=== PATIENT | female | born 1970 | race Caucasian/White ===

== ENCOUNTER 2017-04-24 21:39 | Emergency (ER) | payer SELFPAY ==
[~2017-04-24] VITALS: Ht 165.1 cm; Wt 82.0 kg
[~2017-04-24 21:39] MED LIST: ATEN50TA
[2017-04-24 21:57] VITALS: Ht 165.1 cm; Wt 82.0 kg
== END 2017-04-25 01:28 | disposition left against medical advice (07) ==
LOC: FTE 21:39
DX: Z53.21 Procedure and treatment not carried out due to patient leaving prior to being seen by health care provider (principal)

== ENCOUNTER 2017-04-27 13:10 | Inpatient (IN) | payer OTHER ==
[~2017-04-27] VITALS: Ht 157.5 cm; Wt 80.0 kg
--- NOTE | 2017-04-27 14:35 | ERA ---
ER Documentation Chief Complaint Date/Time DATE: 04/27/17 TIME: 14:34 Chief Complaint FEELS DIZZY, VAG BLEEDING X 1 MOS HPI The patient is a 46-year-old female, presenting to the ER because of dizziness, associated with vaginal bleeding for 1 month, worse for the last 3 days. She denies syncope, near syncope, neck pain, chest pain, abdominal pain. She does not smoke nor drink Past medical history: Hypertension Past Surgical history: Neck ROS All systems reviewed and are negative except as per history of present illness. Medications Home Meds Reported Medications Atenolol* (Atenolol*) 50 Mg Tablet, 50 MG PO DAILY, #30 TAB 04/27/17 Discontinued Reported Medications Atenolol* (Atenolol*) 50 Mg Tablet 11/27/10 Allergies Allergies: Coded Allergies: No Known Drug Allergies (Verified Allergy, Mild, 04/27/17) PMhx/Soc History of Surgery: Yes (neck sx) Anesthesia Reaction: No Hx Neurological Disorder: No Hx Respiratory Disorders: No Hx Cardiac Disorders: Yes (HTN) Hx Psychiatric Problems: No Hx Miscellaneous Medical Probl: No Hx Alcohol Use: No Hx Substance Use: No Hx Tobacco Use: No Smoking Status: Never smoker Physical Exam Vitals Vital Signs Date Time Temp Pulse Resp B/P Pulse Ox O2 Delivery O2 Flow Rate FiO2 04/27/17 15:43 77 145/77 04/27/17 14:22 98.0 85 18 134/49 100 Room Air 04/27/17 13:12 98.1 99 18 144/67 99 Physical Exam Const: No acute distress.Pale Head: Atraumatic. Eyes: icteric Conjunctiva. ENT: Normal External Ears, Nose and Mouth. Neck: Full range of motion. No meningismus. Resp: Clear to auscultation bilaterally. Cardio: Regular rate and rhythm. Abd: Soft, non distended, normal bowel sounds, non tender. Skin: No petechiae or rashes. Back: No midline or flank tenderness. Ext: No cyanosis, or edema. Neur: Awake and alert. No focal deficit Psych: Normal Mood and Affect. Result Diagram: 04/27/17 1450 04/27/17 1450 Results 24 hrs Laboratory Tests Test 04/27/17 14:30 04/27/17 14:50 Iron Level 17ug/dl Total Iron Binding Capacity 382ug/dl Percent Iron Saturation 4% SAT White Blood Count 6.310^3/ul Red Blood Count 2.4710^6/ul Hemoglobin 6.5g/dl Hematocrit 21.4% Mean Corpuscular Volume 86.6fl Mean Corpuscular Hemoglobin 26.3pg Mean Corpuscular Hemoglobin Concent 30.4g/dl Red Cell Distribution Width 19.1% Platelet Count 92365^3/UL Mean Platelet Volume 11.3fl Neutrophils % 69.3% Segmented Neutrophils % (Manual) 70% Band Neutrophils % (Manual) 1% Lymphocytes % 21.6% Lymphocytes % (Manual) 24% Monocytes % 6.0% Monocytes % (Manual) 4% Eosinophils % 2.1% Eosinophils % (Manual) 1% Basophils % 0.5% Nucleated Red Blood Cells % 1% Neutrophils # (Manual) 410^3/ul Band Neutrophils # 0.010^3/ul Absolute Lymphocytes (Manual) 1.510^3/ul Lymphocytes # 1.410^3/ul Monocytes # 0.410^3/ul Absolute Monocytes (Manual) 0.210^3/ul Eosinophils # 0.110^3/ul Basophils # 0.010^3/ul Nucleated Red Blood Cells # 0.110^3/ul Pathologist Review (Hematology) YES Thrombocytosis 2% Platelet Morphology Comment @See below Polychromasia 1+ Hypochromasia 1+ Anisocytosis 1+ Microcytosis 1+ Sodium Level 141mmol/L Potassium Level 4.2mmol/L Chloride Level 107mmol/L Carbon Dioxide Level 25mmol/L Anion Gap 13 Blood Urea Nitrogen 6mg/dl Creatinine 0.74mg/dl Glucose Level 97mg/dl Calcium Level 9.2mg/dl Procedures/[place] [address] Radiology Main Line: [phone] DIAGNOSTIC IMAGING REPORT Patient: TONYA VENTURA : 1970 Age: 46 Sex: F MR #: [id number] DOS: 04/27/17 [facility]3 Ordering MD: ARYA SKINNER MD Location: E/R Room/Bed: PROCEDURE: OBSTETRICAL ULTRASOUND WITH ENDOVAGINAL IMAGES CLINICAL INDICATION: Vaginal Bleed () TECHNIQUE: Multiple sonographic images of the pelvis were obtained utilizing a transabdominal and endovaginal technique. The images were reviewed on a PACS workstation. COMPARISON: None. FINDINGS: The uterus is retroverted and measures 8.4 x 5.6 x 5.5 cm. The endometrium measures 14 mm in thickness and is mildly heterogeneous. There is no evidence of an intrauterine . Several sub-centimeter Nabothian cysts are identified. There is a 1.5 cm anterior intramural uterine fibroid at the level of the upper body. The right ovary measures 2.9 x 1.2 x 1.6 cm. The left ovary measures 5.8 x 3.1 x 4.0 cm. There is normal vascular flow in both ovaries. There is a multi septated cystic lesion in the left ovary measuring up to 4.6 x 2.1 x 3.4 cm. The septations measure up to 3 mm in thickness. Possible vascular flow is noted in the septations. There is trace pelvic free fluid. IMPRESSION: Heterogeneity and thickening of the endometrium to 14 mm without evidence of an intrauterine . Findings may be due to an early intrauterine although an ectopic cannot be entirely excluded. Short- term follow-up ultrasound and serial Beta HCG measurements are recommended for further evaluation. 4.6 cm the septated cystic lesion in the left ovary with possible vascular flow noted in the septations. This lesion is nonspecific and may be a hemorrhagic/ corpus luteal cyst although the presence of possible vascular flow favors an alternative etiology. Follow-up ultrasound in 6-12 weeks is recommended for further evaluation. 1.5 cm uterine fibroid. RPTAT: EE Physician Dean Date Time Electronically viewed and signed by Physician Dean on 04/27/2017 15:42 RA/ CC: ARYA SKINNER MD MEDICAL MAKING DECISION: The patient is a 46-year-old female, presenting with acute symptomatic anemia due to acute vaginal bleeding from fibroid. I have ordered 2 units of packed red blood cell transfusion The differential diagnoses considered include but are not limited to fibroid, uti, menometrorrhagia, non- related bleeding. Consultation: I discussed the present with the on-call oncologist Dr. García who accepted the consult at 4 PM Departure Diagnosis: Primary Impression: Symptomatic anemia Additional Impression: Fibroid Condition: Stable Comments I discussed the findings with the patient. I discussed the patient with the on- call hospitalist Dr Farris at 4:15 PM who was made aware of the lab, the treatment, the patient condition. The patient is admitted to ARYA OSMAN MD Apr 27, 2017 14:35
[2017-04-27 14:59] LABS: ABNORMAL IP MESSAGE 1; BASOPHILS % 0.5 % (0.0-2.0); EOSINOPHILS # 0.1 10^3/ul (0.0-0.5); EOSINOPHILS % 2.1 % (0.0-7.0); HEMATOCRIT 21.4 % (37.0-47.0); LYMPHOCYTES # 1.4 10^3/ul (0.8-2.9); LYMPHOCYTES % 21.6 % (15.0-51.0); MEAN CORPUSCULAR HEMOGLOBIN 26.3 pg (29.0-33.0); MEAN CORPUSCULAR HGB CONC 30.4 g/dl (32.0-37.0); MEAN CORPUSCULAR VOLUME 86.6 fl (82.0-101.0); MEAN PLATELET VOLUME 11.3 fl (7.4-10.4); MONOCYTE # 0.4 10^3/ul (0.3-0.9); NEUTROPHILS % 69.3 % (39.0-77.0); NUCLEATED RED BLOOD CELLS # 0.1 10^3/ul (0.0-0.0); NUCLEATED RED BLOOD CELLS% 0.9 /100WBC (0.0-0.0); PLATELET COUNT 295 10^3/UL (140-415); RED BLOOD COUNT 2.47 10^6/ul (4.20-5.40); RED CELL DISTRIBUTION WIDTH 19.1 % (11.5-14.5); WHITE BLOOD COUNT 6.3 10^3/ul (4.8-10.8)
[2017-04-27 15:00] LABS: POSITIVE DIFF @See below
[2017-04-27 15:02] LABS: HEMOGLOBIN 6.5 g/dl (12.0-16.0)
[2017-04-27 15:03] LABS: PATH REVIEW? YES
[2017-04-27 15:18] LABS: CALCIUM 9.2 mg/dl (8.4-10.2); CREATININE 0.74 mg/dl (0.44-1.00); POTASSIUM 4.2 mmol/L (3.5-5.1)
--- NOTE | 2017-04-27 15:42 | RADRPT ---
PROCEDURE: OBSTETRICAL ULTRASOUND WITH ENDOVAGINAL IMAGES CLINICAL INDICATION: Vaginal Bleed () TECHNIQUE: Multiple sonographic images of the pelvis were obtained utilizing a transabdominal and endovaginal technique. The images were reviewed on a PACS workstation. COMPARISON: None. FINDINGS: The uterus is retroverted and measures 8.4 x 5.6 x 5.5 cm. The endometrium measures 14 mm in thickn ess and is mildly heterogeneous. There is no evidence of an intrauterine . Several sub-ce ntimeter Nabothian cysts are identified. There is a 1.5 cm anterior intramural uterine fibroid at the level of the upper body. The right ovary measures 2.9 x 1.2 x 1.6 cm. The left ovary measures 5.8 x 3.1 x 4.0 cm. There is no rmal vascular flow in both ovaries. There is a multi septated cystic lesion in the left ovary measuring up to 4.6 x 2.1 x 3.4 cm. The s eptations measure up to 3 mm in thickness. Possible vascular flow is noted in the septations. There is trace pelvic free fluid. IMPRESSION: Heterogeneity and thickening of the endometrium to 14 mm without evidence of an intrauterine pregnan cy. Findings may be due to an early intrauterine although an ectopic cannot b e entirely excluded. Short-term follow-up ultrasound and serial Beta HCG measurements are recommend ed for further evaluation. 4.6 cm the septated cystic lesion in the left ovary with possible vascular flow noted in the septati ons. This lesion is nonspecific and may be a hemorrhagic/corpus luteal cyst although the presence o f possible vascular flow favors an alternative etiology. Follow-up ultrasound in 6-12 weeks is recom mended for further evaluation. 1.5 cm uterine fibroid. RPTAT: EE Physician Dean Date Time Electronically viewed and signed by Physician Dean on 04/27/2017 15:42 /
[2017-04-27] MEDS ORDERED: ATEN50TA PO (15:55)
[2017-04-27 16:27] LABS: ANISOCYTOSIS 1+ (0-0); EOSINOPHILS % (M) 1 % (0-7); ERYTHROBLAST% (NRBC) (M) 1 % (0-0); GIANT THROMBO% (M) 2 % (0-0); HYPOCHROMASIA 1+ (0-0); MICROCYTOSIS 1+ (0-0); MONOCYTES % (M) 4 % (0-11); POLYCHROMASIA 1+ (0-0)
[2017-04-27 17:19] LABS: IRON 17 ug/dl (35-150)
[2017-04-27 17:28] LABS: TOTAL IRON BINDING CAPACITY 382 ug/dl (241-421)
--- NOTE | 2017-04-27 18:32 | HP ---
Date/Time of Note Date/Time of Note DATE: 04/27/17 TIME: 18:25 Assessment/Plan VTE Prophylaxis VTE Prophylaxis Intervention: SCD's Assessment/Plan Assessment/Plan 46 yo F here with symptomatic anemia from menorrhagia. PLAN blood transfusion already ordered by ER labor relations analyst cs cont home BB SCDs only HPI/ROS Admit Date/Time Admit Date/Time Apr 27, 2017 at 16:14 Hx of Present Illness CC chest pain, heavy vaginal bleeding HPI 46 yo F presents with chest pain in setting of very heavy vaginal bleeding x 1 month. Pt reports previously had heavy vaginal bleeding ~ 18 mos ago, had lots of tests run by PCP was on OCPs for 3 months and periods went back to normal (3- 4 days q month). However for the past month pt has had very heavy vaginal bleeding, states she's been going though a box of menstrual pads daily. Wednesday started feeling lightheaded and very fatigued which is what prompted her to come to the ER. Hgb here 6.9 PMH/Family/Social Past Medical History as per [facility] Social History lives in the community Smoking Status: Never smoker Exam/Review of Systems Vital Signs Vitals Vital Signs Date Time Temp Pulse Resp B/P Pulse Ox O2 Delivery O2 Flow Rate FiO2 04/27/17 15:43 77 145/77 04/27/17 14:22 98.0 18 100 Room Air Exam Exam EOMI MMM nad no mrg lungs clear abd soft no rashes moves exts freely hgb 6.5, MCV nl, iron level low Labs Result Diagram: 04/27/17 1450 04/27/17 1450 Medications Medications Current Medications Atenolol (Tenormin) 50 mg DAILY PO ; Start 04/28/17 at 09:00 Procedures Procedures pelvic US IMPRESSION: Heterogeneity and thickening of the endometrium to 14 mm without evidence of an intrauterine . Findings may be due to an early intrauterine although an ectopic cannot be entirely excluded. Short- term follow-up ultrasound and serial Beta HCG measurements are recommended for further evaluation. 4.6 cm the septated cystic lesion in the left ovary with possible vascular flow noted in the septations. This lesion is nonspecific and may be a hemorrhagic/ corpus luteal cyst although the presence of possible vascular flow favors an alternative etiology. Follow-up ultrasound in 6-12 weeks is recommended for further evaluation. 1.5 cm uterine fibroid. MILADYS LOUISE MD Apr 27, 2017 18:32
[2017-04-27] MEDS ORDERED: METOCLOPRAMIDE 10 MG INJ IV PRN (19:00)
[2017-04-27] MEDS ORDERED: ONDANSETRON 4 MG INJ IV PRN (19:00)
[2017-04-27] MEDS ORDERED: MAGNESIUM HYDROXIDE 30ML CUP PO PRN (19:00)
[2017-04-27] MEDS ORDERED: DOCUSATE SODIUM 100 MG CAP PO PRN (19:00)
[2017-04-27] MEDS ORDERED: NA PHOSPHATE/BIPHOS 133 ML ENEMA PR PRN (19:00)
[2017-04-27] MEDS ORDERED: ONDANSETRON 4 MG TAB PO PRN (19:00)
[2017-04-27] MEDS ORDERED: ACETAMINOPHEN 325 MG TAB PO PRN (19:00)
[2017-04-27] MEDS ORDERED: NACL 0.9% 3 ML SYG IV SCH (19:00)
[2017-04-27] MEDS ORDERED: BISACODYL 10 MG SUPP PR PRN (19:00)
[2017-04-27] MEDS ORDERED: BISACODYL (EC) 5 MG TAB PO PRN (19:00)
[2017-04-27 19:15] VITALS: TEMP 97.7
[2017-04-27 19:36] VITALS: Ht 157.5 cm; Wt 80.0 kg
[2017-04-27 19:47] VITALS: BP 138/62; PULSE 77; RESP 20
[2017-04-27 20:07] VITALS: BP 138/62
[2017-04-27 22:12] VITALS: BP 135/63; PULSE 93; RESP 18
[2017-04-27] MEDS: LORATADINE 10 MG TAB PO SCH (23:44)
[2017-04-28 02:02] VITALS: BP 132/59
[2017-04-28 05:27] LABS: BASOPHILS % 0.6 % (0.0-2.0); EOSINOPHILS # 0.1 10^3/ul (0.0-0.5); EOSINOPHILS % 2.3 % (0.0-7.0); HEMATOCRIT 22.3 % (37.0-47.0); HEMOGLOBIN 7.1 g/dl (12.0-16.0); LYMPHOCYTES # 1.8 10^3/ul (0.8-2.9); LYMPHOCYTES % 29.5 % (15.0-51.0); MEAN CORPUSCULAR HEMOGLOBIN 27.7 pg (29.0-33.0); MEAN CORPUSCULAR HGB CONC 31.8 g/dl (32.0-37.0); MEAN CORPUSCULAR VOLUME 87.1 fl (82.0-101.0); MEAN PLATELET VOLUME 11.2 fl (7.4-10.4); MONOCYTE # 0.6 10^3/ul (0.3-0.9); MONOCYTES % 9.4 % (0.0-11.0); NEUTROPHILS % 57.6 % (39.0-77.0); NUCLEATED RED BLOOD CELLS # 0.1 10^3/ul (0.0-0.0); NUCLEATED RED BLOOD CELLS% 0.8 /100WBC (0.0-0.0); PLATELET COUNT 238 10^3/UL (140-415); RED BLOOD COUNT 2.56 10^6/ul (4.20-5.40); RED CELL DISTRIBUTION WIDTH 17.2 % (11.5-14.5); WHITE BLOOD COUNT 6.2 10^3/ul (4.8-10.8)
[2017-04-28 07:04] LABS: T3 UPTAKE 29.1 % (23.5-40.5)
[2017-04-28 08:00] VITALS: BP 123/66; RESP 19
[2017-04-28] MEDS: LORATADINE 10 MG TAB PO SCH (09:16)
[2017-04-28] MEDS: HYDROCODONE/APAP (5/325) TAB PO PRN ×2 (09:16→23:51)
[2017-04-28] MEDS: ATENOLOL 50 MG TAB PO SCH (09:17)
--- NOTE | 2017-04-28 12:59 | PN ---
Date/Time of Note Date/Time of Note DATE: 04/28/17 TIME: 12:51 Assessment/Plan VTE Prophylaxis VTE Prophylaxis Intervention: SCD's Lines/Catheters IV Catheter Type (from Nrs): Saline Lock Urinary Cath still in place: No Assessment/Plan Assessment/Plan 1. Symptomatic anemia, from vaginal bleeding, 3 units PRBC transfusion, follow up with H/H 2. Abnormal vaginal bleeding, likely fibroid related, follow up with NITRATOR OPERATOR 3. Left ovarian lesion, repeat US in 6-12 weeks. 4. DVT prophylaxis: SCD's Subjective 24 Hr Interval Summary Free Text/Dictation still weak after one unit PRBC Exam/Review of Systems Vital Signs Vitals Vital Signs Date Time Temp Pulse Resp B/P Pulse Ox O2 Delivery O2 Flow Rate FiO2 04/28/17 08:00 98.8 83 19 123/66 100 04/27/17 22:12 Room Air Intake and Output 04/27/17 04/27/17 04/28/17 15:00 23:00 07:00 Intake Total 1000 ml Output Total 620 ml Balance 380 ml Exam Constitutional: alert, oriented, well developed Psych: nl mood/affect, no complaints Head: atraumatic, normocephalic Eyes: EOMI, PERRL, nl conjunctiva, nl lids ENMT: nl external ears & nose, nl lips & teeth, nl nasal mucosa & septum Neck: non-tender, supple Respiratory: clear to auscultation, normal air movement Cardiovascular: nl pulses, regular rate and rhythm, No S3, No S4, No bruits, No diastolic murmur, No edema, No gallop, No irregular rhythm, No jugular venous distention (JVD), No murmurs/extra sounds, No other, No rub, No systolic murmur Gastrointestinal: nl liver, spleen, non-tender, soft, No ascites, No bowel sounds, No distended, No firm, No hepatomegaly, No mass , No other, No rebound or guarding, No splenomegaly, No surgical scars, No tender Musculoskeletal: nl extremities to inspection Extremities: normal pulses, No calf tenderness, No clubbing, No cyanosis, No edema, No other, No palpable cord, No pitting pedal edema, No tenderness Neurological: S IRON WORKER II-XII intact, nl mental status, nl speech, nl strength Results Result Diagram: 04/28/17 0424 04/27/17 1450 Results 24 hrs Laboratory Tests Test 04/27/17 14:30 04/27/17 14:50 04/27/17 19:40 04/28/17 04:24 Iron Level 17 L Total Iron Binding Capacity 382 Percent Iron Saturation 4 L White Blood Count 6.3 6.2 Red Blood Count 2.47 L 2.56 L Hemoglobin 6.5 *L 7.1 L Hematocrit 21.4 L 22.3 L Mean Corpuscular Volume 86.6 87.1 Mean Corpuscular Hemoglobin 26.3 L 27.7 L Mean Corpuscular Hemoglobin Concent 30.4 L 31.8 L Red Cell Distribution Width 19.1 H 17.2 H Platelet Count 295 238 Mean Platelet Volume 11.3 H 11.2 H Neutrophils % 69.3 57.6 Segmented Neutrophils % (Manual) 70 Band Neutrophils % (Manual) 1 Lymphocytes % 21.6 29.5 Lymphocytes % (Manual) 24 Monocytes % 6.0 9.4 Monocytes % (Manual) 4 Eosinophils % 2.1 2.3 Eosinophils % (Manual) 1 Basophils % 0.5 0.6 Nucleated Red Blood Cells % 1 H 0.8 H Neutrophils # (Manual) 4 4 Band Neutrophils # 0.0 Absolute Lymphocytes (Manual) 1.5 Lymphocytes # 1.4 1.8 Monocytes # 0.4 0.6 Absolute Monocytes (Manual) 0.2 L Eosinophils # 0.1 0.1 Basophils # 0.0 0.0 Nucleated Red Blood Cells # 0.1 H 0.1 H Pathologist Review (Hematology) YES Thrombocytosis 2 H Platelet Morphology Comment @See below Polychromasia 1+ Hypochromasia 1+ Anisocytosis 1+ Microcytosis 1+ Sodium Level 141 Potassium Level 4.2 Chloride Level 107 Carbon Dioxide Level 25 Anion Gap 13 Blood Urea Nitrogen 6 L Creatinine 0.74 Glucose Level 97 Calcium Level 9.2 Serum HCG, Qualitative NEGATIVE Free Thyroxine Index 1.86 Thyroxine (T4) 6.4 Triiodothyronine (T3) Uptake 29.1 Test 04/28/17 04:35 04/28/17 05:52 Urine Test NEGATIVE Lab Scanned Report BLOOD TRANSFUSION Medications Medications Current Medications Atenolol (Tenormin) 50 mg DAILY PO Last administered on 04/28/17t 09:17; Admin Dose 50 MG; Start 04/28/17 at 09:00 Ondansetron HCl (Zofran Tab) 4 mg Q6H PRN PO NAUSEA AND/OR VOMITING; Start at 19:00 Ondansetron HCl (Zofran Inj) 4 mg Q6H PRN IV NAUSEA AND/OR VOMITING; Start at 19:00 Metoclopramide HCl (Reglan) 10 mg Q6H PRN IV NAUSEA AND/OR VOMITING; Start at 19:00 Acetaminophen (Tylenol Tab) 650 mg Q6H PRN PO PAIN LEVEL 1-3 OR FEVER Last administered on 04/27/17 22:10; Admin Dose 650 MG; Start 04/27/17 at 19:00 Acetaminophen/ Hydrocodone Bitart ([place] (5/325)) 1 tab Q6H PRN PO MODERATE PAIN LEVEL 4-6 Last administered on 04/28/17 09:16; Admin Dose 1 TAB; Start at 19:00 Morphine Sulfate (morphine) 2 mg Q4H PRN IV SEVERE PAIN LEVEL 7-10; Start 04/27 at 19:00 Docusate Sodium (Colace) 100 mg Q12H PRN PO CONSTIPATION; Start 04/27/17 at 19: 00 Magnesium Hydroxide (Milk Of Mag) 30 ml DAILY PRN PO CONSTIPATION; Start at 19:00 Bisacodyl (Dulcolax) 5 mg DAILY PRN PO CONSTIPATION; Start 04/27/17 at 19:00 Bisacodyl (Dulcolax Supp) 10 mg DAILY PRN [place] CONSTIPATION; Start 04/27/17 at 19 :00 Sodium Biphosphate/ Sodium Phosphate (Fleet Enema) 133 ml DAILY PRN [place] CONSTIPATION; Start 04/27/17 at 19:00 Loratadine (Claritin) 10 mg DAILY PO Last administered on 04/28/17 09:16; Admin Dose 10 MG; Start 04/27/17 at 23:30 JONNY SWAIN MD Apr 28, 2017 12:59
[2017-04-28 13:32] VITALS: BP 96/53; RESP 1
[2017-04-28 20:03] VITALS: BP 121/75; RESP 20
--- NOTE | 2017-04-28 22:22 | RADRPT ---
PROCEDURE: XR Chest. CLINICAL INDICATION: Preoperative. TECHNIQUE: Single frontal view. COMPARISON: None. FINDINGS: The lungs are clear. The heart size is normal. There is no pleural effusion. There is no pneumothorax. IMPRESSION: 1. Normal chest radiograph. RPTAT: QQ .Rodolfo Taylor MD, Date Time Electronically viewed and signed by .Rodolfo Taylor MD, on 04/28/2017 22:21 .R/
[2017-04-29] VITALS (24 sets, daily range): BP systolic 117–177; BP diastolic 56–84; PULSE 68–86; RESP 11–21
[2017-04-29 05:35] LABS: BASOPHIL # 0.1 10^3/ul (0.0-0.1); BASOPHILS % 0.8 % (0.0-2.0); EOSINOPHILS # 0.2 10^3/ul (0.0-0.5); EOSINOPHILS % 2.8 % (0.0-7.0); HEMOGLOBIN 9.2 g/dl (12.0-16.0); LYMPHOCYTES # 2.1 10^3/ul (0.8-2.9); MEAN CORPUSCULAR HEMOGLOBIN 27.1 pg (29.0-33.0); MEAN CORPUSCULAR HGB CONC 31.7 g/dl (32.0-37.0); MEAN CORPUSCULAR VOLUME 85.3 fl (82.0-101.0); MEAN PLATELET VOLUME 11.3 fl (7.4-10.4); MONOCYTE # 0.5 10^3/ul (0.3-0.9); MONOCYTES % 7.2 % (0.0-11.0); NEUTROPHILS % 59.8 % (39.0-77.0); NUCLEATED RED BLOOD CELLS% 0.4 /100WBC (0.0-0.0); PLATELET COUNT 232 10^3/UL (140-415); WHITE BLOOD COUNT 7.2 10^3/ul (4.8-10.8)
[2017-04-29] MEDS ORDERED: SEVOFLURANE 15 MIN ONE (07:00)
[2017-04-29] MEDS: ATENOLOL 50 MG TAB PO SCH (08:38)
[2017-04-29] MEDS: LORATADINE 10 MG TAB PO SCH (08:38)
[2017-04-29] MEDS ORDERED: MEPERIDINE 25 MG INJ IV PRN ×2 (11:00→18:30)
[2017-04-29] MEDS ORDERED: morphine (1 MG/ML) 10ML SYRINGE IV PRN ×3 (11:00)
[2017-04-29] MEDS ORDERED: EPHEDrine SULFATE 50 MG/5 ML SYG IV PRN (11:00)
[2017-04-29] MEDS ORDERED: LABETALOL HCL 20MG INJ IV PRN (11:00)
[2017-04-29] MEDS ORDERED: HYDROmorphONE (0.2 MG/ML) 10ML SYG IV PRN ×3 (11:00)
[2017-04-29] MEDS ORDERED: FENTAnyl 50 MCG/ML VIAL IV PRN ×5 (11:00→18:30)
[2017-04-29] MEDS ORDERED: ONDANSETRON 4 MG INJ IV PRN ×2 (11:00→18:30)
[2017-04-29] MEDS ORDERED: hydrALAzine 20 MG INJ IV PRN (11:00)
[2017-04-29] MEDS ORDERED: ATROPINE 1 MG/10 ML SYRINGE IV PRN (11:00)
[2017-04-29] MEDS ORDERED: MIDAZOLAM 1 MG/ML 2 ML INJ IV PRN ×2 (11:00→18:30)
[2017-04-29] MEDS ORDERED: OXYCODONE/ACETAMINOPHEN (5/325) TAB PO PRN ×4 (11:00→18:30)
[2017-04-29] MEDS ORDERED: DIPHENHYDRAMINE 50 MG INJ IV PRN ×2 (11:00→18:30)
[2017-04-29] MEDS: D5-NS + KCL 20 MEQ 1,000 ML IV SCH (12:43)
--- NOTE | 2017-04-29 12:56 | PN ---
Date/Time of Note Date/Time of Note DATE: 04/29/17 TIME: 12:54 Assessment/Plan VTE Prophylaxis VTE Prophylaxis Intervention: SCD's Lines/Catheters IV Catheter Type (from Nrs): Peripheral IV Urinary Cath still in place: No Assessment/Plan Assessment/Plan 1. Symptomatic anemia, from vaginal bleeding, 3 units PRBC transfusion, improving, iron supplement, follow up with H/H 2. Abnormal vaginal bleeding, likely fibroid related, D&C today 3. Left ovarian lesion, repeat US in 6-12 weeks. 4. DVT prophylaxis: SCD's Subjective 24 Hr Interval Summary Free Text/Dictation minimal vagina bleeding Exam/Review of Systems Vital Signs Vitals Vital Signs Date Time Temp Pulse Resp B/P Pulse Ox O2 Delivery O2 Flow Rate FiO2 04/29/17 07:55 97.8 68 19 117/57 99 04/27/17 22:12 Room Air Intake and Output 04/28/17 04/28/17 04/29/17 15:00 23:00 07:00 Intake Total 700 ml 850 ml Output Total 900 ml Balance -200 ml 850 ml Exam Constitutional: alert, oriented, well developed Psych: nl mood/affect, no complaints Head: atraumatic, normocephalic Eyes: EOMI, nl conjunctiva, nl lids ENMT: nl external ears & nose, nl lips & teeth, nl nasal mucosa & septum Neck: non-tender, supple Respiratory: clear to auscultation, normal air movement, No congested cough, No crackles/rales, No diminished breath sounds, No intercostal retraction, No labored breathing, No other, No respirations, No tactile fremitus, No wheezing Cardiovascular: nl pulses, regular rate and rhythm, No S3, No S4, No bruits, No diastolic murmur, No edema, No gallop, No irregular rhythm, No jugular venous distention (JVD), No murmurs/extra sounds, No other, No rub, No systolic murmur Gastrointestinal: nl liver, spleen, non-tender, soft, No ascites, No bowel sounds, No distended, No firm, No hepatomegaly, No mass , No other, No rebound or guarding, No splenomegaly, No surgical scars, No tender Musculoskeletal: nl extremities to inspection Extremities: normal pulses, No calf tenderness, No clubbing, No cyanosis, No edema, No other, No palpable cord, No pitting pedal edema, No tenderness Neurological: MARINE EQUIPMENT ENGINEER II-XII intact, nl mental status, nl speech, nl strength Skin: nl turgor Results Result Diagram: 04/29/17 0440 04/27/17 1450 Results 24 hrs Laboratory Tests Test 04/29/17 04:40 04/29/17 07:17 White Blood Count 7.2 Red Blood Count 3.40 #L Hemoglobin 9.2 #L Hematocrit 29.0 #L Mean Corpuscular Volume 85.3 Mean Corpuscular Hemoglobin 27.1 L Mean Corpuscular Hemoglobin Concent 31.7 L Red Cell Distribution Width 16.0 H Platelet Count 232 Mean Platelet Volume 11.3 H Neutrophils % 59.8 Lymphocytes % 29.0 Monocytes % 7.2 Eosinophils % 2.8 Basophils % 0.8 Nucleated Red Blood Cells % 0.4 H Neutrophils # (Manual) 4 Lymphocytes # 2.1 Monocytes # 0.5 Eosinophils # 0.2 Basophils # 0.1 Nucleated Red Blood Cells # 0.0 Lab Scanned Report BLOOD TRANSFUSION Medications Medications Current Medications Atenolol (Tenormin) 50 mg DAILY PO Last administered on 04/28/17 09:17; Admin Dose 50 MG; Start 04/28/17 at 09:00 Ondansetron HCl (Zofran Tab) 4 mg Q6H PRN PO NAUSEA AND/OR VOMITING; Start at 19:00 Ondansetron HCl (Zofran Inj) 4 mg Q6H PRN IV NAUSEA AND/OR VOMITING; Start at 19:00 Metoclopramide HCl (Reglan) 10 mg Q6H PRN IV NAUSEA AND/OR VOMITING; Start at 19:00 Acetaminophen (Tylenol Tab) 650 mg Q6H PRN PO PAIN LEVEL 1-3 OR FEVER Last administered on 04/27/17 22:10; Admin Dose 650 MG; Start 04/27/17 at 19:00 Acetaminophen/ Hydrocodone Bitart ([place] (5/325)) 1 tab Q6H PRN PO MODERATE PAIN LEVEL 4-6 Last administered on 04/28/17 23:51; Admin Dose 1 TAB; Start at 19:00 Morphine Sulfate (morphine) 2 mg Q4H PRN IV SEVERE PAIN LEVEL 7-10; Start 04/27 at 19:00 Docusate Sodium (Colace) 100 mg Q12H PRN PO CONSTIPATION; Start 04/27/17 at 19: 00 Magnesium Hydroxide (Milk Of Mag) 30 ml DAILY PRN PO CONSTIPATION; Start at 19:00 Bisacodyl (Dulcolax) 5 mg DAILY PRN PO CONSTIPATION; Start 04/27/17 at 19:00 Bisacodyl (Dulcolax Supp) 10 mg DAILY PRN [place] CONSTIPATION; Start 04/27/17 at 19 :00 Sodium Biphosphate/ Sodium Phosphate (Fleet Enema) 133 ml DAILY PRN [place] CONSTIPATION; Start 04/27/17 at 19:00 Loratadine 10 mg 10 mg DAILY PO Last administered on 04/28/17 09:16; Admin Dose 10 MG; Start 04/27/17 at 23:30 Potassium Chloride/Dextrose/ Sod Cl (D5-NS + KCl 20 Meq) 1,000 ml @ 75 mls/hr [id number] IV Last administered on 04/29/17 12:43; Admin Dose 75 MLS/HR; Start at 12:30 JONNY SWAIN MD Apr 29, 2017 12:56
[2017-04-29] MEDS ORDERED: LIDOCAINE 2% (SDV) 5 ML INJ ONE (18:30)
[2017-04-29] MEDS ORDERED: MEPERIDINE 100 MG INJ ONE (18:30)
[2017-04-29] MEDS ORDERED: PROPOFOL 20 ML ONE (18:30)
[2017-04-29] MEDS ORDERED: METOCLOPRAMIDE 10 MG INJ IV PRN (18:30)
[2017-04-29] MEDS ORDERED: CEFAZOLIN 1 GM INJ ONE (18:40)
[2017-04-29] MEDS ORDERED: ONDANSETRON 4 MG INJ ONE (18:42)
[2017-04-29] MEDS ORDERED: METOCLOPRAMIDE 10 MG INJ ONE (18:42)
--- NOTE | 2017-04-29 19:24 | SIPON ---
Date/Time of Note Date/Time of Note DATE: 04/29/17 TIME: 19:23 Operative Report Preoperative Diagnosis Menorrhagia,Fibroid uterus,Severe Anemia Postoperative Diagnosis same Operation/Procedure Performed D&C&HYsteroscopy and Endometrial Ablasion Surgeon: NICK STILES M.D. Anesthesia Type: general Estimated Blood Loss: none Transfusion Required: no Specimens Endometrial tissue Grafts/Implants: none Complications: no NICK STILES M.D. Apr 29, 2017 19:24
--- NOTE | 2017-04-29 19:50 | HP ---
DATE OF ADMISSION: 04/29/2017 HISTORY OF PRESENT ILLNESS: This is a 46-year-old with fibroid uterus and symptomatic anemia admitted to the hospital admitted to the hospital. PAST MEDICAL HISTORY: Denies. PAST SURGICAL HISTORY: History of 4 vagina deliveries. ALLERGIES: NO KNOWN DRUG ALLERGIES. PHYSICAL EXAMINATION: VITAL SIGNS: Stable. GENERAL: Normal. ABDOMEN: Nontender and nondistended. GENITOURINARY: Genitalia exam, no blood in vaginal vault. ASSESSMENT AND PLAN: Ultrasound is all discussed with the patient. Possible endometrial ablation discussed with the patient. Also, dilatation and curettage discussed with the patient. The patient signed the consent and is transferred to the operating room. Dictated By: Reynold García MD /rosaura/jason /Document#: [id number]
[2017-04-29] MEDS: morphine 2 MG INJ IV PRN (21:59)
[2017-04-30] VITALS: BP 130/74; PULSE 78; RESP 18
[2017-04-30 00:17] VITALS: BP 128/68; RESP 20
[2017-04-30] MEDS: HYDROCODONE/APAP (5/325) TAB PO PRN ×3 (00:20→23:35)
[2017-04-30 01:00] VITALS: BP 130/77; PULSE 76; RESP 18
[2017-04-30] MEDS: D5-NS + KCL 20 MEQ 1,000 ML IV SCH ×2 (02:21→10:31)
[2017-04-30] MEDS: morphine 2 MG INJ IV PRN ×2 (02:21→07:28)
[2017-04-30 06:05] LABS: BASOPHILS % 0.3 % (0.0-2.0); EOSINOPHILS % 0.1 % (0.0-7.0); HEMATOCRIT 32.2 % (37.0-47.0); HEMOGLOBIN 10.2 g/dl (12.0-16.0); LYMPHOCYTES # 1.1 10^3/ul (0.8-2.9); LYMPHOCYTES % 11.8 % (15.0-51.0); MEAN CORPUSCULAR HGB CONC 31.7 g/dl (32.0-37.0); MEAN CORPUSCULAR VOLUME 85.2 fl (82.0-101.0); MEAN PLATELET VOLUME 11.3 fl (7.4-10.4); MONOCYTE # 0.4 10^3/ul (0.3-0.9); MONOCYTES % 4.1 % (0.0-11.0); NEUTROPHILS % 83.3 % (39.0-77.0); PLATELET COUNT 259 10^3/UL (140-415); RED BLOOD COUNT 3.78 10^6/ul (4.20-5.40); WHITE BLOOD COUNT 9.4 10^3/ul (4.8-10.8)
[2017-04-30 07:43] VITALS: BP 129/64; RESP 18
[2017-04-30] MEDS: LORATADINE 10 MG TAB PO SCH (09:18)
[2017-04-30] MEDS: ATENOLOL 50 MG TAB PO SCH (09:18)
[2017-04-30 14:22] VITALS: BP 106/55; PULSE 70; RESP 18
[2017-04-30] MEDS ORDERED: HYDR-3498 PO (14:54)
[2017-04-30] MEDS ORDERED: FER325 PO (14:54)
--- NOTE | 2017-04-30 15:01 | DS ---
Date/Time of Note Date/Time of Note DATE: 04/30/17 TIME: 14:55 Discharge Summary Admission/Discharge Info Admit Date/Time Apr 29, 2017 at 12:58 Discharge Date/Time Discharge Diagnosis 1. Symptomatic anemia, from vaginal bleeding, 3 units PRBC transfusion, improved , iron supplement, follow up with PCP 2. Abnormal vaginal bleeding, likely fibroid related, D&C 04/29/2017 3. Left ovarian lesion, repeat US in 6-12 weeks. Patient Condition: Stable Procedures D&C on 04/29/2017 Hx of Present Illness 46 yo F presents with chest pain in setting of very heavy vaginal bleeding x 1 month. Pt reports previously had heavy vaginal bleeding ~ 18 mos ago, had lots of tests run by PCP was on OCPs for 3 months and periods went back to normal (3- 4 days q month). However for the past month pt has had very heavy vaginal bleeding, states she's been going though a box of menstrual pads daily. Wednesday started feeling lightheaded and very fatigued which is what prompted her to come to the ER. Hospital Course H/H were 6.5/21.4 with MCV 86.6 on admission. She got three units PRBC transfusion. Her last H/H are 10.2/32.2 on 04/30/2017. For vaginal bleeding, US revealed thickening of endometrium. Patient got D&C on 04/29/2017. She also has a uterine fibroid and a left ovarian cystic lesion. Repeat ultrasound in 6-12 weeks is recommended. [place] [id number] Radiology Main Line: [phone] DIAGNOSTIC IMAGING REPORT Patient: TONYA VENTURA : 1970 Age: 46 Sex: F MR #: [id number] DOS: 04/27/17 1443 Ordering MD: ARYA SKINNER MD Location: E/R Room/Bed: PROCEDURE: OBSTETRICAL ULTRASOUND WITH ENDOVAGINAL IMAGES CLINICAL INDICATION: Vaginal Bleed () TECHNIQUE: Multiple sonographic images of the pelvis were obtained utilizing a transabdominal and endovaginal technique. The images were reviewed on a PACS workstation. COMPARISON: None. FINDINGS: The uterus is retroverted and measures 8.4 x 5.6 x 5.5 cm. The endometrium measures 14 mm in thickness and is mildly heterogeneous. There is no evidence of an intrauterine . Several sub-centimeter Nabothian cysts are identified. There is a 1.5 cm anterior intramural uterine fibroid at the level of the upper body. The right ovary measures 2.9 x 1.2 x 1.6 cm. The left ovary measures 5.8 x 3.1 x 4.0 cm. There is normal vascular flow in both ovaries. There is a multi septated cystic lesion in the left ovary measuring up to 4.6 x 2.1 x 3.4 cm. The septations measure up to 3 mm in thickness. Possible vascular flow is noted in the septations. There is trace pelvic free fluid. IMPRESSION: Heterogeneity and thickening of the endometrium to 14 mm without evidence of an intrauterine . Findings may be due to an early intrauterine although an ectopic cannot be entirely excluded. Short- term follow-up ultrasound and serial Beta HCG measurements are recommended for further evaluation. 4.6 cm the septated cystic lesion in the left ovary with possible vascular flow noted in the septations. This lesion is nonspecific and may be a hemorrhagic/ corpus luteal cyst although the presence of possible vascular flow favors an alternative etiology. Follow-up ultrasound in 6-12 weeks is recommended for further evaluation. 1.5 cm uterine fibroid. RPTAT: EE Physician Dean Date Time Electronically viewed and signed by Nicolas Sesay Physician on 04/27/2017 15:42 RA/ CC: ARYA SKINNER MD Home Meds Active Scripts Ferrous Sulfate* (Ferrous Sulfate*) 325 Mg Tabec, 325 MG PO BID, #60 TAB Prov:JONNY SWAIN MD 04/30/17 Hydrocodone Bit-Acetaminophen (Hydrocodone Bit-APAP) 5-325MG Tablet, 1 TAB PO Q6H Y for MODERATE PAIN LEVEL 4-6, #20 TAB Prov:JONNY SWAIN MD 04/30/17 Reported Medications Atenolol* (Atenolol*) 50 Mg Tablet, 50 MG PO DAILY, #30 TAB 04/27/17 Discontinued Reported Medications Atenolol* (Atenolol*) 50 Mg Tablet 11/27/10 Follow-up Plan PCP in one week Primary Care Provider Not On Staff Doctor Pending Labs Laboratory Tests Test 04/30/17 04:52 White Blood Count 9.410^3/ul (4.8-10.8) Red Blood Count 3.7810^6/ul (4.20-5.40) Hemoglobin 10.2g/dl (12.0-16.0) Hematocrit 32.2% (37.0-47.0) Mean Corpuscular Volume 85.2fl (82.0-101.0) Mean Corpuscular Hemoglobin 27.0pg (29.0-33.0) Mean Corpuscular Hemoglobin Concent 31.7g/dl (32.0-37.0) Red Cell Distribution Width 16.0% (11.5-14.5) Platelet Count 36601^3/UL (140-415) Mean Platelet Volume 11.3fl (7.4-10.4) Neutrophils % 83.3% (39.0-77.0) Lymphocytes % 11.8% (15.0-51.0) Monocytes % 4.1% (0.0-11.0) Eosinophils % 0.1% (0.0-7.0) Basophils % 0.3% (0.0-2.0) Nucleated Red Blood Cells % 0.0/100WBC (0.0-0.0) Neutrophils # (Manual) 7.810^3/ul (1.7-7.5) Lymphocytes # 1.110^3/ul (0.8-2.9) Monocytes # 0.410^3/ul (0.3-0.9) Eosinophils # 0.010^3/ul (0.0-0.5) Basophils # 0.010^3/ul (0.0-0.1) Nucleated Red Blood Cells # 0.010^3/ul (0.0-0.0) JONNY SWAIN MD Apr 30, 2017 15:01
--- NOTE | 2017-04-30 17:11 | RADRPT ---
Vent Rate: 66 bpm RR Interval: 0 msec [place] Interval: 174 msec QRS Duration: 106 msec QT Interval: 430 msec QTC Interval: 450 msec P-R-T Bigelow: 59 - 3 - 26 degrees Normal sinus rhythm Normal ECG Electronically Signed By: Maxime Lanier [id number]
--- NOTE | 2017-04-30 17:36 | RADRPT ---
PROCEDURE: US Lower extremity Venous. CLINICAL INDICATION: Bilateral lower extremity edema , pain TECHNIQUE: Multiple sonographic images of the bilateral lower extremity deep venous system was obt ained utilizing grayscale, color-flow, compressive sonography and doppler imaging with augmentation. The images were reviewed on a PACS workstation. COMPARISON: None. FINDINGS: There is normal compressibility and flow within the bilateral common femoral, femoral , posterior ti bial and popliteal veins. RPTAT: AA IMPRESSION: No sonographic evidence for deep venous thrombosis. .Maynor Pena MD, MD Date Time Electronically viewed and signed by .Maynor Pena MD, on 04/30/2017 17:35 .S/
[2017-04-30 20:00] VITALS: BP 148/67; PULSE 70; RESP 17
[2017-05-01] MEDS ORDERED: DIPHENHYDRAMINE 50 MG INJ IV ONE (00:30)
[2017-05-01] MEDS ORDERED: DIPHENHYDRAMINE 50 MG INJ ONE (00:39)
[2017-05-01 02:00] VITALS: BP 129/60; PULSE 69; RESP 20
[2017-05-01] MEDS: LORATADINE 10 MG TAB PO SCH (09:28)
[2017-05-01] MEDS: ATENOLOL 50 MG TAB PO SCH (09:29)
--- NOTE | 2017-05-01 09:48 | PDOCDIS ---
Discharge Instructions DIAGNOSIS Discharge Diagnosis Symptomatic anemia, from vaginal bleeding, Left ovarian lesion CONDITION Patient Condition: Stable HOME CARE INSTRUCTIONS: Diet Instructions: Regular FOLLOW UP/APPOINTMENTS Follow-up Plan You had a small lesion on your left ovary. You should have a repeat ultrasound in 6-12 weeks. Please let your program director substance abuse or regular doctor know. Please schedule a follow up within 4 weeks with the program director substance abuse who saw you in the hospital Dr Reynold García Address: [address] [place] [address] MILADYS LOUISE MD May 01, 2017 09:48
--- NOTE | 2017-05-01 09:51 | DS ---
Date/Time of Note Date/Time of Note DATE: 05/01/17 TIME: 09:48 Discharge Summary Admission/Discharge Info Admit Date/Time Apr 29, 2017 at 12:58 Discharge Date/Time Discharge Diagnosis Symptomatic anemia from vaginal bleeding, Left ovarian lesion Patient Condition: Stable Consults gynecology Procedures 8.22 pelvic US FINDINGS: The uterus is retroverted and measures 8.4 x 5.6 x 5.5 cm. The endometrium measures 14 mm in thickness and is mildly heterogeneous. There is no evidence of an intrauterine . Several sub-centimeter Nabothian cysts are identified. There is a 1.5 cm anterior intramural uterine fibroid at the level of the upper body. The right ovary measures 2.9 x 1.2 x 1.6 cm. The left ovary measures 5.8 x 3.1 x 4.0 cm. There is normal vascular flow in both ovaries. There is a multi septated cystic lesion in the left ovary measuring up to 4.6 x 2.1 x 3.4 cm. The septations measure up to 3 mm in thickness. Possible vascular flow is noted in the septations. There is trace pelvic free fluid. IMPRESSION: Heterogeneity and thickening of the endometrium to 14 mm without evidence of an intrauterine . Findings may be due to an early intrauterine although an ectopic cannot be entirely excluded. Short- term follow-up ultrasound and serial Beta HCG measurements are recommended for further evaluation. 4.6 cm the septated cystic lesion in the left ovary with possible vascular flow noted in the septations. This lesion is nonspecific and may be a hemorrhagic/ corpus luteal cyst although the presence of possible vascular flow favors an alternative etiology. Follow-up ultrasound in 6-12 weeks is recommended for further evaluation. 1.5 cm uterine fibroid. beta hcg negative 8.24: D&C, hysteroscopy, and endometrial ablation Hx of Present Illness 46 yo F presents with chest pain in setting of very heavy vaginal bleeding x 1 month. Pt reports previously had heavy vaginal bleeding ~ 18 mos ago, had lots of tests run by PCP was on OCPs for 3 months and periods went back to normal (3- 4 days q month). However for the past month pt has had very heavy vaginal bleeding, states she's been going though a box of menstrual pads daily. Wednesday started feeling lightheaded and very fatigued which is what prompted her to come to the ER. Hospital Course Hgb 6.9 on arrival, pt transfused and hgb improved and remained stable during her stay. Drive In [employer] consulted, pt underwent D&C, hysteroscopy, and endometrial ablation 8.24. Hgb remained stable after. Pt discharged for outpatient follow up and will need to see tablet making machine operator helper or PCP for repeat us in 6-12 weeks for ovarian lesion. This was communicated to patient prior to discharge. Home Meds Active Scripts Ferrous Sulfate* (Ferrous Sulfate*) 325 Mg Tabec, 325 MG PO BID, #60 TAB Prov:JONNY SWAIN MD 04/30/17 Hydrocodone Bit-Acetaminophen (Hydrocodone Bit-APAP) 5-325MG Tablet, 1 TAB PO Q6H Y for MODERATE PAIN LEVEL 4-6, #20 TAB Prov:JONNY SWAIN MD 04/30/17 Reported Medications Atenolol* (Atenolol*) 50 Mg Tablet, 50 MG PO DAILY, #30 TAB 04/27/17 Discontinued Reported Medications Atenolol* (Atenolol*) 50 Mg Tablet 11/27/10 Follow-up Plan tablet making machine operator helper within 4 weeks Primary Care Provider Not On Staff Doctor Time spent on discharge: > 30 minutes Copies To: CC: NICK STILES M.D., ELLEN MD May 01, 2017 09:51
--- NOTE | 2017-05-03 08:25 | OPR ---
DATE OF OPERATION: 04/29/2017 PREOPERATIVE DIAGNOSIS: 1. Symptomatic menorrhagia. 2. Symptomatic anemia. 3. Severe menorrhagia. 4. Fibroid uterus. POSTOPERATIVE DIAGNOSIS: 1. Symptomatic menorrhagia. 2. Symptomatic anemia. 3. Severe menorrhagia. 4. Fibroid uterus. OPERATION PERFORMED: Dilatation and curettage, hysteroscopy and endometrial ablation. ESTIMATED BLOOD LOSS: Less than 1 cc. COMPLICATIONS: None. ANESTHESIOLOGIST: . ANESTHESIA: General. OPERATIVE PROCEDURE: The patient was taken to the operating room where general anesthesia was found to be adequate. The patient was placed in the dorsolateral position. After prep and drape a weighted speculum was placed inside the vaginal vault anteriorly. Anteriorly the cervix was grasped by a single tooth tenaculum. The cervix was dilated by Hegar dilators to size 8 and then sharp curettage in the endometrial cavity was done using the hysteroscope of the IP Ghoster hydrothermia. The evaluation of endometrial cavity was done. No lesion or nodes were dissected, and then using the hydrothermal system, intrauterine cavity was ablated, pictures taken, and then the instruments removed safely. The patient tolerated the procedure well and was transferred to the recovery room in stable condition. There were no complications regarding the surgery. Dictated By: Reynold García MD /rosaura/benedict /Document#: [id number]
== END 2017-05-01 11:47 | disposition home or self-care (01) | DRG 743 ==
LOC: E/R 13:10 → MS1 16:14 → OBSVTOIN 04-29 12:58
PROVIDERS: ADMIT Internal Medicine; ATTEND Internal Medicine
PROC: 30233N1 Transfusion of Nonautologous Red Blood Cells into Peripheral Vein, Percutaneous Approach (ICD-10-PCS; 2017-04-27)
PROC: 30233N1 Transfusion of Nonautologous Red Blood Cells into Peripheral Vein, Percutaneous Approach (ICD-10-PCS; 2017-04-28)
PROC: 0U5B8ZZ Destruction of Endometrium, Via Natural or Artificial Opening Endoscopic (ICD-10-PCS; 2017-04-29)
PROC: 0UDB8ZX Extraction of Endometrium, Via Natural or Artificial Opening Endoscopic, Diagnostic (ICD-10-PCS; principal; 2017-04-29 16:30)
DX: D25.1 Intramural leiomyoma of uterus (principal); I10 Essential (primary) hypertension; N92.0 Excessive and frequent menstruation with regular cycle; N88.8 Other specified noninflammatory disorders of cervix uteri; D64.9 Anemia, unspecified; N93.8 Other specified abnormal uterine and vaginal bleeding; N83.202 Unspecified ovarian cyst, left side
CPT/HCPCS: 36415; 36430; 71010; 76830; 76856; 80048; 83540; 84436; 84479; 84703; 85025; 86850; 86900; 86901; 86920; 93005; 93970; G0378; J0360; J0690; J1200; J2175; J2270; J2405; J2765; J3010; J3480; P9016